=== PATIENT | male | born 1960 | race Caucasian/White ===

== ENCOUNTER 2025-01-18 12:50 | Emergency (ER) | payer BC, SELFPAY ==
[2025-01-18 12:51] VITALS: BP 155/67
[2025-01-18 13:18] VITALS: BMI 25.1
[2025-01-18 13:22] VITALS: BP 148/82
[2025-01-18 13:45] LABS: Hematocrit 42.9 % (39.0-52.0); Hemoglobin 14.7 g/dL (13.0-18.0); Mean Corp Hgb Conc. 34.3 g/dL (33.0-37.0); Mean Corpuscular Hgb 30.1 pg (27.0-31.0); Mean Corpuscular Volume 87.7 fL (80.0-94.0); Mean Platelet Volume 11.8 fL (7.4-10.4); Platelet Count 160 10^3/uL (130-400); Red Blood Cell Count 4.89 10^6/uL (4.70-6.10); Red Cell Dist. Width 12.6 % (11.5-14.5); White Blood Cell Count 23.8 10^3/uL (4.8-10.8)
--- NOTE | 2025-01-18 13:48 | ED.GENMED ---
History of Present Illness
General
Chief Complaint: Abdominal Pain
Time Seen by Provider: 01/18/25 13:16
History of Present Illness
History of Present Illness:
64-year-old male presents the emergency department for evaluation of sudden onset of left lower quadrant abdominal pain beginning 1 hour prior to arrival. Pain is nonradiating and is constant in nature. No associated fever, notes that he is unable
to get comfortable. Appears quite diaphoretic.
Past History
Past History
ED Past Medical History: HTN and Other
ED Past Surgical History: Orthopedic and Urological
Social History
Tobacco: Non-smoker
Alcohol: None
Personal:
Living: with family
Employment: Employed
Review of Systems
Review of Systems
Allergies reviewed?: Yes
All Other Systems: ROS reviewed and negative except as documented in HPI and ROS
Phy Exam
Physical Exam
Physical Exam:
GEN: Ill-appearing, pale, diaphoretic
HEENT: Oral mucosa moist, no scleral icterus
Cardiac: Regular rate
Lung: No respiratory distress, no tachypnea
Abdomen: Grossly nontender to palpation
MSK: No gross deformity or injuries
Skin: Good color, no pallor or jaundice, no rashes
Neuro: AO x3, moves all extremities freely
Psych: Calm, cooperative
Course
Orders/Labs/Results
Orders:
Orders
01/18/25 13:20
Complete Blood Count/With Diff Urgent
Comprehensive Metabolic Panel Urgent
Lipase Urgent
01/18/25 13:39
CT Abd/pelvis Angio W/wo Iv Urgent
Comment:
Reason For Exam: sudden abd pain/diaphoresis
HYDROmorphone [Dilaudid] 0.5 mg IV NOW STA
Ondansetron Injectable [Zofran] 4 mg IV NOW STA
01/18/25 13:40
Lactated Ringers [Lr] 1,000 ml IV BOLUS
01/18/25 13:52
Lactic Acid Urgent
01/18/25 16:02
Urinalysis Reflex To Culture Urgent
Date Specimen was Collected: 01/18/25
Time Specimen was Collected: 16:01
Abnormal Lab Results
01/18/25
13:20
WBC 23.8 H 10^3/uL
(4.8-10.8)
MPV 11.8 H fL
(7.4-10.4)
Abs Immat Gran (auto) 0.1 H 10^3/uL
(0-0.05)
Absolute Neuts (auto) 7.3 H 10^3/uL
(1.4-6.5)
Absolute Lymphs (auto) 15.5 H 10^3/uL
(1.2-3.4)
Absolute Monos (auto) 0.7 H 10^3/uL
(0.1-0.6)
Neutrophils % 30.5 L %
(42.2-75.2)
Lymphocytes % 65.1 H %
(20.5-51.1)
Chloride 108 H mmol/L
(98-107)
Glucose 143 H mg/dl
(70-99)
01/18/25 13:20
01/18/25 13:20
Vital Signs
Initial and Last Documented VS:
Initial Vital Signs
Temp Pulse Resp BP Pulse Ox
97.7 F 74 20 155/67 99
01/18/25 12:51 01/18/25 12:51 01/18/25 12:51 01/18/25 12:51 01/18/25 12:51
Last Documented Vital Signs
Temp Pulse Resp BP Pulse Ox
97.7 F 79 20 133/75 99
01/18/25 12:51 01/18/25 15:02 01/18/25 15:02 01/18/25 15:00 01/18/25 15:01
MDM/Problems Addressed
MDM/Problems Addressed:
Given the patient's dramatic presentation with severe pallor, abdominal mottling, and diaphoresis, and a rapid bedside FAST exam was performed showing no evidence for free fluid. Given his known hematologic malignancy I felt it was prudent to rule
out mesenteric ischemia as a cause of his severe pain with a benign abdominal exam thus sent him for an urgent CT angiogram of the abdomen pelvis which ultimately revealed a punctate distal left ureteral stone. After initial dose of hydromorphone
patient appeared quite comfortable. Will be discharged to outpatient supportive care/expectant management
*Pulse Oximetry
SaO2: 100
Oxygen Mode of Delivery: Room air
*Critical Care Note
Total Time (30-74mins, 75-104mins- exclusive of procedures): Not Applicable
ED Attending Note
-
Portions of this chart may have been created with voice recognition software.� Occasional wrong word or��sound alike� substitutions may have occurred due to the inherent limitations of voice recognition software.
Discharge Plan
Departure
Patient Disposition: Home (Routine Discharge)
Date of Disposition: 01/18/25
Time of Disposition: 15:34
Patient with high blood pressure during this ER visit?: No
Discharge Problem:
Ureterolithiasis
Instructions: Kidney Stones (DC)
Prescriptions:
New
oxycodone 5 mg tablet
5 mg PO Q8H PRN (Reason: Pain) Qty: 8 0RF
No Action
hydrochlorothiazide 25 MG tablet
25 mg PO DAILY
acetaminophen [Tylenol] 325 MG capsule
650 mg PO Q4HPRN PRN (Reason: pain)
Referrals:
Pamela Thomas MD [Family Provider, Family Practice]
Activity Restrictions/Additional Instructions:
Take 600mg ibuprofen every 6-8 hours for pain control
Interventions
Interventions:
*Risk Screen - Suicide Last Done: 01/18/25 12:51
*Neglect/Abuse Screening Last Done: 01/18/25 12:51
*Nursing Disposition Last Done: 01/18/25 16:04
IQ-Gshknc-Gcbqthehue Assessment Last Done: 01/18/25 15:33
Discharge Date and Time
Discharge Date/Time: 01/18/25 16:04
Print Language: INDONESIAN
[2025-01-18] MEDS: ZOFRAN 4 MG IV (13:51)
[2025-01-18] MEDS: DILAUDID 0.5 MG IV (13:51)
[2025-01-18] MEDS: LR 1000 IV (13:51)
[2025-01-18 13:57] LABS: ALT (SGPT) 17 U/L (0-50); AST (SGOT) 22 U/L (17-59); Albumin 4.7 g/dl (3.5-5.0); Alkaline Phosphatase 51 U/L (38-126); Blood Urea Nitrogen 16 mg/dl (9-20); Calcium 10.2 mg/dl (8.4-10.2); Carbon Dioxide 27 mmol/L (22-30); Chloride 108 mmol/L (98-107); Estimated Creatinine Clearance 71 ml/min; Glucose 143 mg/dl (70-99); Lipase 153 U/L (23-300); Potassium 3.7 mmol/L (3.5-5.1); Sodium 145 mmol/L (135-145); Total Bilirubin 0.6 mg/dl (0.2-1.3); eGFR > 60.00
[2025-01-18 14:10] LABS: Lactic Acid 1.9 mmol/L (0.7-2.0)
[2025-01-18 15:00] VITALS: BP 133/75
[2025-01-18 15:10] LABS: % Basophils 0.4 % (0-2); % Eosinophils 0.8 % (0-6); % Immature Granulocytes 0.3 % (0-0.5); % Lymphocytes 65.1 % (20.5-51.1); % Monocytes 2.9 % (1.7-9.3); % Neutrophils 30.5 % (42.2-75.2); Absolute Basophils 0.1 10^3/uL (0-0.2); Absolute Eosinophils 0.2 10^3/uL (0-0.7); Absolute Immature Granulocytes 0.1 10^3/uL (0-0.05); Absolute Lymphocytes 15.5 10^3/uL (1.2-3.4); Absolute Monocytes 0.7 10^3/uL (0.1-0.6); Absolute Neutrophils 7.3 10^3/uL (1.4-6.5); Nucleated Red Blood Cells % 0 % (-)
[2025-01-18 16:21] LABS: Urine Albumin Negative (Neg - Trace); Urine Bilirubin Negative (Negative); Urine Character Clear (Clear); Urine Color Yellow; Urine Glucose Negative (Negative); Urine Ketone Negative (Negative); Urine Leukocyte Negative (Negative); Urine Nitrite Negative (Negative); Urine Occult Blood 4+ (Negative); Urine Specific Gravity 1.005 (<1.030); Urine Urobilinogen Negative (Neg - 1+)
[2025-01-18 16:29] LABS: Urine Bacteria Moderate (Negative); Urine Red Blood Cell 16-20 /HPF (0-2); Urine Squamous Cell 0-2 /LPF (Few); Urine White Cell 0-2 /HPF (0-5)
[2025-01-18 16:30] LABS: Urine Amorphous Seen
== END 2025-01-18 16:04 | disposition home or self-care (01) ==
LOC: EMR 12:50
PROVIDERS: Physician Assistant; EMERGENCY PHYSICIAN Emergency Medicine; FAMILY PHYSICIAN Student in an Organized Health Care Education/Training Program
DX: N13.2 Hydronephrosis with renal and ureteral calculous obstruction (principal); I10 Essential (primary) hypertension
CPT/HCPCS: 96374; 96375; 96361; 99284; 74174; 80053; 81003; 81015; 83605; 83690; 85025; 87086; Q9967